=== PATIENT | female | born 1970 | race Two or more races ===

== ENCOUNTER 2016-07-24 23:06 | Emergency (ER) | payer SELFPAY ==
[~2016-07-24] VITALS: Ht 157.5 cm; Wt 77.1 kg
[2016-07-24 23:16] VITALS: BP 120/66
[2016-07-24] MEDS ORDERED: IBUPROFEN 400 MG TABLET PO ONE (23:30)
--- NOTE | 2016-07-24 23:36 | NUR ---
pt transported to radiology for xrays.
[2016-07-24] MEDS ORDERED: IBUPROFEN 400 MG TABLET ONE (23:45)
== END 2016-07-25 00:27 | disposition home or self-care (01) ==
LOC: ER 23:06
DX: S33.5XXA Sprain of ligaments of lumbar spine, initial encounter (principal); S20.219A Contusion of unspecified front wall of thorax, initial encounter; V43.62XA Car passenger injured in collision with other type car in traffic accident, initial encounter; Y93.89 Activity, other specified; Y92.413 State road as the place of occurrence of the external cause; Y99.8 Other external cause status
CPT/HCPCS: 71010; 72110; 99284; A4606; Z7610